=== PATIENT | female | born 1935 | race Caucasian/White ===

== ENCOUNTER 2020-03-09 09:53 | Inpatient (IN) | payer MEDICARE ==
[~2020-03-09] VITALS: Ht 165.1 cm; Wt 59.0 kg
[2020-03-09 11:16] LABS: Albumin 3.2 g/dL (3.4-5.0); Anion Gap 6 (5-15); Blood Urea Nitrogen 18 mg/dL (7-18); Calcium 7.9 mg/dL (8.5-10.1); Carbon Dioxide 30 mmol/L (21-32); Chloride 98 mmol/L (98-107); Glucose 91 mg/dL (74-106); Potassium 3.1 mmol/L (3.5-5.1); Sodium 134 mmol/L (136-145)
[2020-03-09 11:22] LABS: Basophils # (auto) 0 10 ^3/uL (0-0.2); Basophils % (auto) 0.5 % (0.0-2.0); Eosinophils # (auto) 0 10 ^3/uL (0-0.8); Eosinophils % (auto) 0.1 % (0.0-7.0); Hematocrit 40.6 % (36.0-46.0); Hemoglobin 13.4 g/dL (12.2-16.2); Lymphocytes # (auto) 0.6 10 ^3/uL (0.4-5.4); Lymphocytes % (auto) 10.1 % (10.0-50.0); Mean Corpuscular Hemoglobin 31.3 pg (28.0-32.0); Mean Corpuscular Hgb Conc. 33.1 g/dL (32.0-36.0); Mean Corpuscular Volume 94.7 fL (80.0-100.0); Monocytes # (auto) 0.4 10 ^3/uL (0-1.3); Monocytes % (auto) 7.5 % (0.0-12.0); Neutrophils # (auto) 4.6 10 ^3/uL (1.6-8.6); Neutrophils % (auto) 81.8 % (37.0-80.0); Nucleated Red Blood Cells % 0.1 %; Platelet Count (auto) 150 10^3/uL (140-450); Red Blood Cells 4.29 10^6/uL (4.0-5.20); Red Cell Distribution Width 14.5 % (11.8-14.3); White Blood Cell 5.6 10^3/uL (4.4-10.8)
[2020-03-09 11:23] LABS: Alanine Aminotransferase 14 U/L (13-56); Alkaline Phosphatase 66 U/L (45-117); Aspartate Aminotransferase 25 U/L (15-37); Bilirubin, Total 0.6 mg/dL (0.2-1.0); GFR African American 68 mL/min; GFR Non-African American 56 mL/min; Total Protein 6.4 g/dL (6.4-8.2)
[2020-03-09 12:44] LABS: Urine Bacteria MANY /hpf (None Seen); Urine Blood Negative /uL (Negative); Urine Mucus FEW (None Seen); Urine Specific Gravity 1.016 (1.001-1.035); Urine WBC 112 /hpf (0 - 5); Urine WBC Clumps PRESENT /hpf (None Seen)
[2020-03-09] MEDS ORDERED: cefTRIAXone 1GM/50ML D5W 50 ML IV ONE (13:15)
[2020-03-09] MEDS ORDERED: POTASSIUM EFFERVESENT TAB 25 MEQ PO ONE (13:15)
[2020-03-09] MEDS ORDERED: AZITHROMYCIN 500MG/ 250ML 250 ML IV ONE (14:30)
[2020-03-09] MEDS ORDERED: SODIUM CHLORIDE 0.9% 1,000 ML IV SCH (15:17)
[2020-03-09] MEDS ORDERED: MORPHINE SULFATE 4 MG/ML SYR/VIAL IV PRN (15:30)
[2020-03-09] MEDS ORDERED: ACETAMINOPHEN 500 MG TAB PO PRN (15:30)
[2020-03-09] MEDS ORDERED: CALCIUM W/VIT D (600MG/400IU) TAB PO ONE (15:30)
[2020-03-09] MEDS ORDERED: CALCIUM CHL 100MG/ML 500 MG in D5W 5% 100 ML IV ONE (15:30)
[2020-03-09] MEDS ORDERED: ACETAMINOPHEN 325 MG TAB PO PRN (15:30)
[2020-03-09] MEDS ORDERED: LORazepam 2MG/ML-1ML VIAL IV PRN (15:30)
[2020-03-09] MEDS ORDERED: POTASSIUM CHL 20MEQ/100ML 100 ML IV ONE (15:30)
[2020-03-09] MEDS ORDERED: MORPHINE SULF INJ 2 MG/ML SYRINGE 1ML IV PRN (15:30)
[2020-03-09] MEDS ORDERED: POTASSIUM CHL 20 Meq TABLET PO ONE (15:30)
[2020-03-09] MEDS ORDERED: NITROGLYCERIN 0.4 MG SL TAB SL PRN (15:30)
[2020-03-09] MEDS ORDERED: VANCOMYCIN PER PHARMACY 1,000 MG IV SCH (15:30)
[2020-03-09] MEDS ORDERED: VANCOMYCIN 500 MG in D5W 5% 100 ML IV SCH (16:00)
[2020-03-09] MEDS: HYDROCORTISONE SOD SUCC 100 MG/2ML INJ VIAL IV SCH (17:40)
[2020-03-09] MEDS: PIPERACILLIN-TAZOB 3.375GM 100 ML IV SCH (17:40)
[2020-03-09] MEDS ORDERED: ALBUTEROL SULF 2.5 MG/0.5ML(0.5%) NEB SOLN NEB SCH (18:00)
[2020-03-09] MEDS ORDERED: IPRATROPIUM BROM 0.5 MG/2.5ML INH SOL NEB SCH (18:00)
[2020-03-09] MEDS ORDERED: PIPERACILLIN-TAZOB 3.375GM 3.375 GM in D5W 5% 100 ML IV SCH (18:00)
--- NOTE | 2020-03-09 19:20 | NUR ---
Telemetry admit from ER KENJIBILLIE admitted to Telemetry unit after SBAR received. Patient oriented to Iwona Waller, primary RN, unit, room, bed, and unit policies regarding patient care and visiting hours. Patient now on continuous telemetry monitoring, tele box # 3 and telemetry reading on arrival to unit is SB in 50s. Patient placed on bedside oxygen at 3 L via NC, weighed by bedscale and encouraged to call if they need something. All questions and concerns addressed, patient verbalized understanding.
[2020-03-09 22:00] VITALS: BP 107/60
[2020-03-09] MEDS: ALBUTEROL SULF HFA 90MCG INH 200DOSE IN SCH (22:00)
[2020-03-09] MEDS: FAMOTIDINE (10MG/ML) 2ML VL IV SCH (22:25)
--- NOTE | 2020-03-09 22:28 | NUR ---
Respiratory note: MEDICATION NOT FOUND IN ER. CONTACTED PHARMACY. SCHEDULE MDI NOT GIVEN AT THIS TIME.
[2020-03-09] MEDS ORDERED: ALBUTEROL SULFATE 90 MCG MDI IN ONE (22:57)
--- NOTE | 2020-03-09 23:00 | NUR ---
Patient rounds Patient had removed NC and BP cuff. NC and BP cuff replaced and readjusted on patient. Patient educated not to remove mentioned devices and educated on use of them. Patient verbalized understanding. Patient slightly confused stating "I don't know where I'm at". Patient reoriented. Will continue to monitor.
[2020-03-09 23:43] VITALS: BP 97/41
[2020-03-10] VITALS (7 sets, daily range): BP systolic 101–149; BP diastolic 52–71
[2020-03-10] MEDS: HYDROCORTISONE SOD SUCC 100 MG/2ML INJ VIAL IV SCH ×3 (00:26→13:22)
[2020-03-10] MEDS: PIPERACILLIN-TAZOB 3.375GM 100 ML IV SCH ×2 (00:27→06:27)
[2020-03-10] MEDS ORDERED: HYDR-4798 PO (05:24)
[2020-03-10] MEDS ORDERED: MORP1TAB12 PO (05:24)
[2020-03-10] MEDS ORDERED: FUROSEMIDE 20 MG/2 ML VIAL IV SCH (06:00)
[2020-03-10] MEDS: ALBUTEROL SULF HFA 90MCG INH 200DOSE IN SCH ×3 (06:18→21:55)
[2020-03-10 07:34] LABS: Basophils # (auto) 0 10 ^3/uL (0-0.2); Basophils % (auto) 0.3 % (0.0-2.0); Eosinophils # (auto) 0 10 ^3/uL (0-0.8); Hematocrit 40.5 % (36.0-46.0); Hemoglobin 13.6 g/dL (12.2-16.2); Lymphocytes # (auto) 0.4 10 ^3/uL (0.4-5.4); Lymphocytes % (auto) 11.5 % (10.0-50.0); Mean Corpuscular Hemoglobin 31.9 pg (28.0-32.0); Mean Corpuscular Hgb Conc. 33.5 g/dL (32.0-36.0); Mean Corpuscular Volume 95.1 fL (80.0-100.0); Monocytes # (auto) 0.3 10 ^3/uL (0-1.3); Monocytes % (auto) 7.4 % (0.0-12.0); Neutrophils % (auto) 80.8 % (37.0-80.0); Nucleated Red Blood Cells % 0.2 %; Platelet Count (auto) 162 10^3/uL (140-450); Red Blood Cells 4.26 10^6/uL (4.0-5.20); Red Cell Distribution Width 14.5 % (11.8-14.3); White Blood Cell 3.7 10^3/uL (4.4-10.8)
[2020-03-10 07:45] LABS: Albumin 2.7 g/dL (3.4-5.0); Calcium 8.1 mg/dL (8.5-10.1); Magnesium 2.4 mg/dL (1.6-2.6); Potassium 4.4 mmol/L (3.5-5.1)
[2020-03-10 07:47] LABS: INR 0.98 (0.9-1.15); Partial Thromboplastin Time 36.3 sec (23.64-32.05)
[2020-03-10 07:58] LABS: BUN/Creatinine Ratio 16.7; Bilirubin, Total 0.5 mg/dL (0.2-1.0); CRP High Sensitivity 5.94 mg/dL (< 0.3)
--- NOTE | 2020-03-10 09:21 | NUR ---
FAMILY SON DEBO PHILLIP CALLED [phone]. STATED TO CALL HIM IF MOTHER BECOMES NON COMPLAINT OR RESISTIVE TO CARE.
[2020-03-10] MEDS ORDERED: ENOXAPARIN SOD 40 MG/0.4 ML SYRINGE SC SCH (10:00)
[2020-03-10] MEDS ORDERED: cefTRIAXone 1GM/50ML D5W 50 ML IV ONE (10:15)
[2020-03-10] MEDS: CALCIUM W/VIT D (600MG/400IU) TAB PO SCH (10:27)
[2020-03-10] MEDS: CHOLECALCIFEROL (VITD3) 1,000UNIT=25mCg TAB PO SCH (10:27)
[2020-03-10] MEDS: ASCORBIC ACID 1,000 MG TAB PO SCH (10:27)
[2020-03-10] MEDS: FAMOTIDINE (10MG/ML) 2ML VL IV SCH (10:28)
[2020-03-10] MEDS: ZINC SULFATE 220mg CAP or TAB PO SCH (10:28)
[2020-03-10] MEDS: POTASSIUM CHL 20 Meq TABLET PO SCH (10:29)
[2020-03-10] MEDS: ENOXAPARIN SOD 40 MG/0.4 ML SYRINGE SC SCH (10:29)
--- NOTE | 2020-03-10 13:10 | NUR ---
DOCTOR TRISTAN AT BEDSIDE DISCUSSING POC WIT PATIENT.
[2020-03-10] MEDS ORDERED: AZITHROMYCIN 250 MG TAB PO ONE (15:00)
[2020-03-10] MEDS ORDERED: MORPHINE SULF INJ 2 MG/ML SYRINGE 1ML IV PRN (15:15)
[2020-03-10] MEDS: HYDROcodone-ACET 5/325MG TAB PO PRN ×2 (15:15→21:59)
--- NOTE | 2020-03-10 19:35 | NUR ---
Opening Shift Note Assumed care of patient, awake and alert. No S/S of distress/SOB or pain. Instructed on POC and to call for assist PRN, will continue to monitor for changes Q1hr and PRN. fall precautions in place call light within reach.
--- NOTE | 2020-03-10 21:59 | NUR ---
pain pain 6/10 patient medicated per md order
--- NOTE | 2020-03-10 22:40 | NUR ---
patient educated on using call light when needing to used bedside commode to prevent falls. patient educated on benefits and risks. patient shown how to use call light and patient remonstrated how to use call light. fall precautions in place
--- NOTE | 2020-03-11 04:55 | NUR ---
NOTIFIED INDEPENDENT FILM MAKERNORBERT DAVIS FOR LAB DRAW
[2020-03-11 05:00] VITALS: BP 135/51
[2020-03-11] MEDS: ALBUTEROL SULF HFA 90MCG INH 200DOSE IN SCH ×2 (05:30→14:00)
--- NOTE | 2020-03-11 06:00 | NUR ---
NOTIFIED REDUCER SUSAN. PER SUSAN SHE IS AWARE OF BLOOD DRAW AND WILL SEND REDUCER
[2020-03-11] MEDS: HYDROcodone-ACET 5/325MG TAB PO PRN (06:33)
--- NOTE | 2020-03-11 06:33 | NUR ---
PATIENT REPORTS ACHING PAIN TO BACK 02/16 Addendum: 03/11/20 at 0634 by ALBA FARIA RN RN PATIENT MEDICATED PER MD BARNES
--- NOTE | 2020-03-11 07:10 | NUR ---
REPORT GIVEN TO JOSE ALFREDO RN. PATIENT IS ON FALL PRECAUTIONS. PATIENT DENIES SOB DISTRESS OR PAIN. SKIN INTACT. IV PATENT. BERNAL PATENT AND DRAINING. SKIN INTACT. ENDORSE CARE TO JOSE ALFREDO RN FOR [facility].
[2020-03-11] MEDS ORDERED: cefTRIAXone 1GM/50ML D5W 50 ML IV SCH (09:00)
[2020-03-11] MEDS ORDERED: AZITHROMYCIN 250 MG TAB PO SCH (10:00)
[2020-03-11] MEDS: POTASSIUM CHL 20 Meq TABLET PO SCH (10:30)
[2020-03-11] MEDS: CALCIUM W/VIT D (600MG/400IU) TAB PO SCH (10:30)
[2020-03-11] MEDS: FAMOTIDINE (10MG/ML) 2ML VL IV SCH (10:30)
[2020-03-11] MEDS: ZINC SULFATE 220mg CAP or TAB PO SCH (10:30)
[2020-03-11] MEDS: ENOXAPARIN SOD 40 MG/0.4 ML SYRINGE SC SCH (10:31)
[2020-03-11] MEDS: CHOLECALCIFEROL (VITD3) 1,000UNIT=25mCg TAB PO SCH (11:00)
[2020-03-11] MEDS: ASCORBIC ACID 1,000 MG TAB PO SCH (11:00)
[2020-03-11] MEDS ORDERED: LEVO500T21 PO (12:49)
[2020-03-11 13:54] VITALS: BP 142/60
--- NOTE | 2020-03-11 14:35 | NUR ---
NOTIFIED OF MED LIST REQUEST/MRSA SWAB NOTIFIED [facility] RN THAT MRSA SWAB IS NEEDED. ALSO, PATIENT DOESN'T KNOW WHAT MEDICATIONS SHE TAKES. INFORMED [facility] RN TO CALL [facility] TO SEE IF THEY CAN FAX OVER HER MED LIST. Addendum: 03/11/20 at 1436 by CARSON ESTRADA RN WRONG PATIENT - DISREGARD!
[2020-03-11 17:00] VITALS: BP 136/68
--- NOTE | 2020-03-11 17:18 | NUR ---
Discharge Went over discharge paperwork with patient. Notified caregiver, Juliet, that patient was ready. She stated she was waiting downstairs and had already picked up her prescription - Levaquin. Pt had previously removed IV. She also removed her own Sainz catheter by disconnecting the section with the balloon and pulling it out. No trauma noted, no blood. ID bands removed by patient as well. Telemetry removed by patient and sent to ICU per hospital protocol. Pt was taken to the anti-room between [facility] and [facility] where security met her to take her down to private vehicle where caregiver, Juliet, was picking her up. All personal belongings went with patient.
== END 2020-03-11 17:15 | disposition home or self-care (01) | DRG 177 ==
LOC: ER 09:53 → TELE 09:54 → TELE-EAST 19:20
PROVIDERS: ADMIT Hospitalist; ATTEND Internal Medicine
DX: U07.1 COVID-19 (principal); J12.89 Other viral pneumonia; J44.1 Chronic obstructive pulmonary disease with (acute) exacerbation; E44.0 Moderate protein-calorie malnutrition; J44.0 Chronic obstructive pulmonary disease with (acute) lower respiratory infection; N30.00 Acute cystitis without hematuria; E87.6 Hypokalemia; E83.51 Hypocalcemia; E78.5 Hyperlipidemia, unspecified; F03.90 Unspecified dementia, unspecified severity, without behavioral disturbance, psychotic disturbance, mood disturbance, and anxiety; I11.0 Hypertensive heart disease with heart failure; I50.9 Heart failure, unspecified; Z99.81 Dependence on supplemental oxygen; Z68.22 Body mass index [BMI] 22.0-22.9, adult
CPT/HCPCS: 36415; 71045; 80053; 81001; 82565; 82728; 83605; 83615; 83735; 84100; 84443; 84484; 85025; 85379; 85610; 85730; 86141; 86850; 86900; 86901; 87040; 87070; 87086; 87088; 87186; 87804; 87880; 93005; 94640; G0378; J0696; J2543; J3480; J3490; J7060

== ENCOUNTER 2024-05-08 05:57 | Inpatient (IN) | payer MEDICARE ==
[2024-05-08] VITALS (7 sets, daily range): BP systolic 125–156; BP diastolic 59–67; PULSE 54–91; RESP 13–22; TEMP 97.9–98.2; O2SAT 91–100
[~2024-05-08] VITALS: Ht 162.6 cm; Wt 47.2 kg
[~2024-05-08 05:57] MED LIST: LEVO500T31 PO
[2024-05-08 07:05] LABS: Basophils # (auto) 0 10 ^3/uL (0-0.2); Eosinophils # (auto) 0 10 ^3/uL (0-0.8); Eosinophils % (auto) 0.1 % (0.0-7.0); Red Cell Distribution Width 13.5 % (11.8-14.3)
[2024-05-08 07:08] LABS: Basophils % (auto) 0.2 % (0.0-2.0); Hematocrit 39.3 % (36.0-46.0); Hemoglobin 13.5 g/dL (12.2-16.2); Lymphocytes # (auto) 0.6 10 ^3/uL (0.4-5.4); Lymphocytes % (auto) 3.7 % (10.0-50.0); Mean Corpuscular Hemoglobin 34.9 pg (28.0-32.0); Mean Corpuscular Hgb Conc. 34.5 g/dL (32.0-36.0); Mean Corpuscular Volume 101.2 fL (80.0-100.0); Monocytes % (auto) 6.1 % (0.0-12.0); Neutrophils # (auto) 14.2 10 ^3/uL (1.6-8.6); Neutrophils % (auto) 89.9 % (37.0-80.0); Platelet Count (auto) 194 10^3/uL (140-450); Red Blood Cells 3.88 10^6/uL (4.0-5.20); White Blood Cell 15.8 10^3/uL (4.4-10.8)
[2024-05-08 07:18] LABS: Chloride 105 mmol/L (98-107); Sodium 141 mmol/L (136-145)
[2024-05-08 07:19] LABS: Anion Gap 8 (5-15); Carbon Dioxide 28 mmol/L (20-30)
[2024-05-08 07:20] LABS: Calcium 9.5 mg/dL (8.7-10.4)
[2024-05-08 07:24] LABS: BUN/Creatinine Ratio 14.4 (10.0-20.0); Blood Urea Nitrogen 14 mg/dL (9-23); Glucose 155 mg/dL (74-106)
[2024-05-08 08:37] LABS: Urine Bacteria FEW /hpf (None Seen); Urine Blood Negative /uL (Negative); Urine Clarity Turbid (Clear); Urine Color Light-Yellow (Yellow); Urine Hyaline Cast FEW /lpf (0 - 2); Urine Protein, UAD Negative (Negative); Urine Specific Gravity 1.014 (1.001-1.035); Urine Urobilinogen Normal (Negative); Urine WBC 9 /hpf (0 - 5); Urine pH 5.5 (5.0-9.0)
[2024-05-08] MEDS ORDERED: ONDANSETRON HCL 4 MG/2 ML VIAL IV PRN (10:15)
[2024-05-08] MEDS ORDERED: NITROGLYCERIN 0.4 MG SL TAB SL PRN (10:15)
[2024-05-08] MEDS ORDERED: IPRATROPIUM BROM 0.5 MG/2.5ML INH SOL NEB PRN (10:15)
[2024-05-08] MEDS ORDERED: ALBUTEROL SULF 2.5 MG/0.5ML(0.5%) NEB SOLN NEB PRN (10:15)
[2024-05-08] MEDS ORDERED: DOCUSATE SOD 100 MG CAP PO PRN (10:15)
[2024-05-08] MEDS: SODIUM CHLORIDE 0.9% 1,000 ML IV SCH (10:32)
[2024-05-08] MEDS: ceFAZolin 1GM/50ML 50 ML IV ONE (10:32)
[2024-05-08] MEDS: POTASSIUM EFFERVESENT TAB 25 MEQ PO ONE (10:32)
[2024-05-08 10:33] LABS: Magnesium 2.2 mg/dL (1.6-2.6)
[2024-05-08 10:34] LABS: Phosphorus 3.5 mg/dL (2.4-5.1)
[2024-05-08 11:10] LABS: INR 1.09 (0.9-1.15); Prothrombin Time 11.5 sec (9.3-11.8)
[2024-05-08] MEDS: MORPHINE SULFATE INJ 2 MG/ml SYRG IV PRN (12:41)
[2024-05-08] MEDS ORDERED: MORP1TAB14 PO (20:51)
[2024-05-08] MEDS: INFLUENZA QUAD 2023-2024 0.5 ML SYRG IM ONE (21:00)
[2024-05-08] MEDS: ceFAZolin 1GM/50ML 50 ML IV SCH (21:37)
[2024-05-09] VITALS (10 sets, daily range): BP systolic 143–152; BP diastolic 65–80; PULSE 57–79; RESP 16–21; TEMP 97.2–98.4; O2SAT 90–98
[2024-05-09 04:21] LABS: Basophils # (auto) 0 10 ^3/uL (0-0.2); Eosinophils # (auto) 0 10 ^3/uL (0-0.8); Hemoglobin 11.4 g/dL (12.2-16.2); Lymphocytes # (auto) 0.6 10 ^3/uL (0.4-5.4); Mean Corpuscular Hemoglobin 35.2 pg (28.0-32.0); Monocytes # (auto) 1.3 10 ^3/uL (0-1.3); Red Blood Cells 3.23 10^6/uL (4.0-5.20); Red Cell Distribution Width 13.5 % (11.8-14.3); White Blood Cell 13.9 10^3/uL (4.4-10.8)
[2024-05-09 04:27] LABS: Hematocrit 32.6 % (36.0-46.0); Lymphocytes % (auto) 4.1 % (10.0-50.0); Mean Corpuscular Hgb Conc. 34.9 g/dL (32.0-36.0); Mean Corpuscular Volume 100.9 fL (80.0-100.0); Monocytes % (auto) 9.4 % (0.0-12.0); Neutrophils % (auto) 86.5 % (37.0-80.0); Platelet Count (auto) 167 10^3/uL (140-450)
[2024-05-09 04:33] LABS: Alanine Aminotransferase 39 U/L (7-40); Albumin 4.3 g/dL (3.2-4.8); Alkaline Phosphatase 57 U/L (46-116); Anion Gap 9 (5-15); Aspartate Aminotransferase 47 U/L (13-40); BUN/Creatinine Ratio 21.3 (10.0-20.0); Bilirubin, Total 1.3 mg/dL (0.2-1.0); Blood Urea Nitrogen 17 mg/dL (9-23); Calcium 9.7 mg/dL (8.7-10.4); Carbon Dioxide 29 mmol/L (20-30); Chloride 104 mmol/L (98-107); Glucose 126 mg/dL (74-106); Potassium 3.1 mmol/L (3.5-5.1); Sodium 142 mmol/L (136-145); Total Protein 6.7 g/dL (5.7-8.2)
[2024-05-09] MEDS: ENOXAPARIN SOD 40 MG/0.4 ML SYRINGE SC SCH (09:14)
[2024-05-09 21:41] LABS: Chloride 104 mmol/L (98-107); Potassium 3.5 mmol/L (3.5-5.1); Sodium 141 mmol/L (136-145)
[2024-05-09 21:42] LABS: Anion Gap 6 (5-15); Carbon Dioxide 31 mmol/L (20-30)
[2024-05-09 21:43] LABS: Calcium 9.5 mg/dL (8.7-10.4)
[2024-05-09 21:47] LABS: Glucose 114 mg/dL (74-106)
[2024-05-09 21:48] LABS: BUN/Creatinine Ratio 24.6 (10.0-20.0); Blood Urea Nitrogen 17 mg/dL (9-23)
[2024-05-10] VITALS (9 sets, daily range): BP systolic 139–160; BP diastolic 69–82; PULSE 60–80; RESP 12–20; TEMP 96.7–99.5; O2SAT 97–99
[2024-05-10] MEDS: ceFAZolin 1GM/50ML 50 ML IV ONE (07:08)
[2024-05-10] MEDS: TETRACAINE 1% INJ 2 ML VIAL IJ ONE (07:24)
[2024-05-10] MEDS ORDERED: MIDAZOLAM HCL 2MG/2ML 2ml VIAL (1mg/ml) ONE (07:26)
[2024-05-10] MEDS: TRANEXAMIC ACID 10 ML ONE (08:08)
[2024-05-10] MEDS ORDERED: fentaNYL CITRATE 100 MCG/2 ML VL ONE (08:37)
[2024-05-10] MEDS: LACTATED RINGER'S 1,000 ML IV SCH (08:45)
[2024-05-10] MEDS ORDERED: HYDROmorphone HCL 2 MG/ML VL/or syr IV PRN (09:00)
[2024-05-10] MEDS: ONDANSETRON HCL 4 MG/2 ML VIAL IV ONE (09:00)
[2024-05-10] MEDS: CLINDAMYCIN 600MG IV 50 ML IV SCH (12:52)
[2024-05-11] VITALS (8 sets, daily range): BP systolic 108–147; BP diastolic 64–74; PULSE 64–77; RESP 16–18; TEMP 97.9–98.6; O2SAT 94–98
[2024-05-11] MEDS: CLINDAMYCIN 600MG IV 50 ML IV SCH (04:53)
[2024-05-11 07:03] LABS: Hemoglobin 9.2 g/dL (12.2-16.2)
[2024-05-11 07:06] LABS: Hematocrit 26.2 % (36.0-46.0)
[2024-05-11] MEDS: cefTRIAXone 1GM/50ML D5W 50 ML IV ONE (09:10)
[2024-05-11 09:20] LABS: Alanine Aminotransferase 33 U/L (7-40); Albumin 3.7 g/dL (3.2-4.8); Alkaline Phosphatase 47 U/L (46-116); Anion Gap 5 (5-15); Aspartate Aminotransferase 50 U/L (13-40); BUN/Creatinine Ratio 22.8 (10.0-20.0); Bilirubin, Total 1.1 mg/dL (0.2-1.0); Blood Urea Nitrogen 13 mg/dL (9-23); Calcium 9.1 mg/dL (8.7-10.4); Carbon Dioxide 30 mmol/L (20-30); Chloride 104 mmol/L (98-107); Glucose 93 mg/dL (74-106); Potassium 3.1 mmol/L (3.5-5.1); Sodium 139 mmol/L (136-145); Total Protein 5.8 g/dL (5.7-8.2)
[2024-05-11 09:22] LABS: Basophils # (auto) 0 10 ^3/uL (0-0.2); Basophils % (auto) 0.1 % (0.0-2.0); Eosinophils # (auto) 0 10 ^3/uL (0-0.8); Eosinophils % (auto) 0.1 % (0.0-7.0); Hemoglobin 9.2 g/dL (12.2-16.2); Lymphocytes # (auto) 0.7 10 ^3/uL (0.4-5.4); Lymphocytes % (auto) 5.6 % (10.0-50.0); Mean Corpuscular Hemoglobin 34.4 pg (28.0-32.0); Mean Corpuscular Volume 101.1 fL (80.0-100.0); Monocytes % (auto) 8.3 % (0.0-12.0); Neutrophils # (auto) 9.9 10 ^3/uL (1.6-8.6); Neutrophils % (auto) 85.9 % (37.0-80.0); Platelet Count (auto) 124 10^3/uL (140-450); Red Blood Cells 2.67 10^6/uL (4.0-5.20); Red Cell Distribution Width 12.9 % (11.8-14.3); White Blood Cell 11.5 10^3/uL (4.4-10.8)
[2024-05-11] MEDS: cefTRIAXone 1GM/50ML D5W 50 ML IV SCH (09:45)
[2024-05-11] MEDS: ACETAMINOPHEN 325 MG TAB PO PRN (12:35)
[2024-05-11] MEDS: POTASSIUM CHL 20 Meq TABLET PO ONE (23:37)
[2024-05-12] VITALS (7 sets, daily range): BP systolic 120–146; BP diastolic 57–66; PULSE 57–89; RESP 17–18; TEMP 97.8–98.5; O2SAT 93–98
[2024-05-12] MEDS: KETOROLAC TROMETH 30 MG/ML 1ML VIAL IV PRN (01:28)
[2024-05-12 07:51] LABS: Hematocrit 23.5 % (36.0-46.0); Hemoglobin 8.4 g/dL (12.2-16.2)
[2024-05-12 08:03] LABS: Calcium 8.9 mg/dL (8.7-10.4); Chloride 104 mmol/L (98-107); Potassium 3.7 mmol/L (3.5-5.1); Sodium 140 mmol/L (136-145)
[2024-05-12 08:04] LABS: Anion Gap 6 (5-15); Carbon Dioxide 30 mmol/L (20-30)
[2024-05-12 08:09] LABS: BUN/Creatinine Ratio 24.5 (10.0-20.0); Blood Urea Nitrogen 12 mg/dL (9-23); Glucose 71 mg/dL (74-106)
[2024-05-12 15:17] LABS: COVID19 ANTIGEN SOFIA FIA NEGATIVE (NEGATIVE)
== END 2024-05-12 17:45 | DRG 481 ==
LOC: ER 05:57 → EDBD 05:57 → OVERFLOW 10:09 → CENTRAL 11:36
PROVIDERS: ADMIT Nurse Practitioner Family; ATTEND Family Medicine
PROC: 0QS634Z Reposition Right Upper Femur with Internal Fixation Device, Percutaneous Approach (ICD-10-PCS; principal; 2024-05-10 07:21)
DX: S72.141A Displaced intertrochanteric fracture of right femur, initial encounter for closed fracture (principal); I50.32 Chronic diastolic (congestive) heart failure; J44.1 Chronic obstructive pulmonary disease with (acute) exacerbation; N39.0 Urinary tract infection, site not specified; R71.0 Precipitous drop in hematocrit; Z68.1 Body mass index [BMI] 19.9 or less, adult; I11.0 Hypertensive heart disease with heart failure; E87.6 Hypokalemia; F02.80 Dementia in other diseases classified elsewhere, unspecified severity, without behavioral disturbance, psychotic disturbance, mood disturbance, and anxiety; G30.9 Alzheimer's disease, unspecified; Z20.822 Contact with and (suspected) exposure to COVID-19; S50.01XA Contusion of right elbow, initial encounter; W18.39XA Other fall on same level, initial encounter; I44.7 Left bundle-branch block, unspecified; G89.4 Chronic pain syndrome; E11.9 Type 2 diabetes mellitus without complications; E78.00 Pure hypercholesterolemia, unspecified; Z99.81 Dependence on supplemental oxygen; Y93.89 Activity, other specified; Y92.89 Other specified places as the place of occurrence of the external cause; Y99.8 Other external cause status; R63.6 Underweight
CPT/HCPCS: 36415; 70450; 71045; 73080; 73502; 76000; 80048; 80053; 81001; 82962; 83735; 84100; 84132; 85014; 85018; 85025; 85610; 86850; 86900; 86901; 87086; 87088; 87186; 87426; 90686; 93005; 93306; 96365; 97110; 97116; 97163; 97530; 99291; G0378; J1885; J2250; J3490